=== PATIENT | male | born 2000 | race Caucasian/White ===

== ENCOUNTER 2020-08-22 03:07 | Emergency (ER) | payer OTHER ==
[2020-08-22 03:26] VITALS: BP 123/57; PULSE 64; TEMP 98.4; BMI 20.5
[2020-08-22] MEDS ORDERED: TETRACAINE 0.5% OPHTH SOLN 2 ML BOTTLE OU ONE (03:44)
[2020-08-22] MEDS ORDERED: FLUORESCEIN NA 1 EA STRIP OU ONE (03:44)
[2020-08-22] MEDS ORDERED: FLUORESCEIN NA 1 EA STRIP ONE (03:47)
[2020-08-22] MEDS ORDERED: TETRACAINE 0.5% OPHTH SOLN 2 ML BOTTLE ONE (03:47)
== END 2020-08-22 05:05 | disposition home or self-care (01) ==
LOC: JER 03:07
DX: T15.01XA Foreign body in cornea, right eye, initial encounter (principal); T15.02XA Foreign body in cornea, left eye, initial encounter
CPT/HCPCS: 99283-25

== ENCOUNTER 2021-06-16 22:19 | Emergency (ER) | payer OTHER ==
[2021-06-16 23:11] VITALS: BP 146/84; PULSE 75; TEMP 98; BMI 22.0
== END 2021-06-17 01:44 | disposition home or self-care (01) ==
LOC: JER 22:19
DX: J09.X2 Influenza due to identified novel influenza A virus with other respiratory manifestations (principal); J06.9 Acute upper respiratory infection, unspecified
CPT/HCPCS: 71046-TC-FY; 87804; 99284-25; C9803; U0003; U0005

== ENCOUNTER 2021-07-12 10:25 | Emergency (ER) | payer OTHER ==
[2021-07-12 10:35] VITALS: BMI 24.3
[2021-07-12] MEDS ORDERED: MAG HYDROX/AL HYDROX/SIMETH 30 ML UNIT-DOSE CUP PO ONE (11:34)
[2021-07-12] MEDS ORDERED: ACETAMINOPHEN 325 MG TABLET (FP) PO ONE (11:34)
[2021-07-12] MEDS ORDERED: FAMOTIDINE 10 MG TABLET PO ONE (11:34)
[2021-07-12] MEDS ORDERED: ACETAMINOPHEN 325 MG TABLET (FP) ONE (11:42)
[2021-07-12] MEDS ORDERED: MAG HYDROX/AL HYDROX/SIMETH 30 ML UNIT-DOSE CUP ONE (11:43)
[2021-07-12] MEDS ORDERED: FAMOTIDINE 20 MG TABLET ONE (11:43)
[2021-07-12 12:49] VITALS: BP 110/68; PULSE 62; TEMP 97.9
== END 2021-07-12 12:49 | disposition home or self-care (01) ==
LOC: JER 10:25
DX: K29.70 Gastritis, unspecified, without bleeding (principal); R11.2 Nausea with vomiting, unspecified
CPT/HCPCS: 99283-25